=== PATIENT | female | born 1990 | race Caucasian/White ===

== ENCOUNTER 2017-06-03 15:30 | Emergency (ER) | payer OTHER ==
[~2017-06-03] VITALS: Ht 160 cm; Wt 71.3 kg
[2017-06-03 15:34] VITALS: Ht 160 cm; Wt 71.3 kg
--- NOTE | 2017-06-03 19:20 | ERD ---
ER Documentation Chief Complaint Chief Complaint left arm pain "needle might have broke" after using meth HPI 26-year-old female history of methamphetamine abuse presents with left arm pain , "needle might have broken" after using a week ago. She states that she was using crystal meth and she has been using a clean needle and felt like the tick might have broken off in her left upper extremity. She stated that there was some swelling that resolved she continues to feel a bump in her arm. Secondarily she also comes in with a dry cough for about 4 days to causes her to have shortness of breath. She has not had any fevers or chills, hemoptysis or leg swelling. No recent surgeries, no recent trauma she does not take any exogenous steroids. ROS All systems reviewed and are negative except as per history of present illness. Medications Home Meds Active Scripts Amoxicillin/Potassium Clav (Amox-Clav 875-125 mg Tablet) 875-125 mg Tab, 1 TAB PO BID for 7 Days, #14 TAB Prov:JANN SHORE PA-C 06/03/17 PMhx/Soc History of Surgery: Yes (L foot fx repair) Hx Miscellaneous Medical Probl: Yes (substance abuse) Hx Alcohol Use: Yes Hx Substance Use: Yes (Marijuana, heroine, meth) Hx Tobacco Use: Yes Smoking Status: Current every day smoker Physical Exam Vitals Vital Signs Date Time Temp Pulse Resp B/P Pulse Ox O2 Delivery O2 Flow Rate FiO2 06/03/17 15:34 98.4 99 18 131/76 99 Physical Exam General: Well-developed, well-nourished. The patient appears in no acute distress. HEENT: Head is normocephalic, atraumatic. No scleral icterus. Pupils are equal , round, and reactive. Oral mucous membranes are moist. No pharyngeal erythema. Neck: Supple. Nontender. Lungs: Clear to auscultation. Normal air movement. Heart: Regular rate and rhythm. S1 and S2 are normal. No murmurs, gallops, or rubs. Abdomen: Soft, nontender, nondistended. Bowel sounds are normoactive. Extremities: firm area in LUE, no fluctuance induration or lymphatic streaking. Pulses radially are 2+ bilaterally. Neurologic: Alert and oriented 3. No focal deficits. Skin: Normal turgor. No rash or lesions. Results 24 hrs DIAGNOSTIC IMAGING REPORT Patient: VICENTE WEIR : 1990 Age: 26 Sex: F MR #: [id number] DOS: 06/03/171832 Ordering MD: JANN SHORE PA-C Location: [facility] Room/Bed: PROCEDURE: Left humerus x-ray CLINICAL INDICATION: Possible needle foreign body. TECHNIQUE: Erect AP and lateral views of the left humerus were obtained, a total of 3 images sent to the PACS for review. A metallic BB marker is placed along the anterior distal arm soft tissues on 2 of the images submitted. COMPARISON: None FINDINGS: There is normal mineralization. No acute fracture or dislocation is seen. There is no significant soft tissue swelling. The visualized joints are normal. No radiopaque foreign body is evident. RPTAT:HJJR IMPRESSION: Unremarkable x-ray of the left humerus without evidence of retained radiopaque foreign body. Lalo Monaco Physician Date Time Electronically viewed and signed by Physician Saúl on 06/03/2017 19:57 JR/ CC: JANN SHORE PA-C DIAGNOSTIC IMAGING REPORT Patient: VICENTE WEIR : 1990 Age: 26 Sex: F MR #: [id number] DOS: 06/03/171832 Ordering MD: JANN SHORE PA-C Location: [facility] Room/Bed: PROCEDURE: XR Chest. CLINICAL INDICATION: Cough. TECHNIQUE: Portable AP erect view of the chest was obtained. COMPARISON: None. FINDINGS: The cardiomediastinal silhouette is within normal limits. The lungs are clear. There is no evidence for pleural effusion, pneumothorax or pulmonary vascular congestion. The osseous structures are intact with no evidence for acute abnormality. RPTAT:HJJR IMPRESSION: No evidence for acute intrathoracic pathology. Lalo Monaco Physician Date Time Electronically viewed and signed by Lalo Monaco Physician on 06/03/2017 19:56 JR/ CC: JANN SHORE PA-C Current Medications Medications (Trade) Dose Ordered Sig/Patrice Route PRN Reason Start Time Stop Time Status Last Admin Dose Admin Diphtheria/ Tetanus/Acell Pertussis (Adacel) 0.5 ml ONCE ONCE IM* 06/03/17 19:30 06/03/17 19:31 DC Procedures/MDM 26-year-old female comes with upper respiratory infection, with chief complaint of shortness of breath with this. I believe her symptoms are related to her cough, and is likely due to her acute bronchitis. No evidence of pneumonia on chest x-ray. She also had an x-ray done of her left upper extremity that was negative for foreign body. Additionally clinically she does not have any signs of infection, abscess, saving area due to local inflammation from needle use. Patient's tetanus was updated, she was advised to return for any worsening signs or symptoms or signs of infection. Departure Diagnosis: Primary Impression: Cough Additional Impression: Methamphetamine abuse Condition: Good JANN SHORE PA-C Jun 03, 2017 19:20
[2017-06-03] MEDS ORDERED: DIPHTH/TET/ACEL PERTUSS (ADULT) 0.5 ML VIAL IM* ONE (19:30)
--- NOTE | 2017-06-03 19:56 | RADRPT ---
PROCEDURE: XR Chest. CLINICAL INDICATION: Cough. TECHNIQUE: Portable AP erect view of the chest was obtained. COMPARISON: None. FINDINGS: The cardiomediastinal silhouette is within normal limits. The lungs are clear. There is no evidenc e for pleural effusion, pneumothorax or pulmonary vascular congestion. The osseous structures are i ntact with no evidence for acute abnormality. RPTAT:HJJR IMPRESSION: No evidence for acute intrathoracic pathology. Physician Saúl Date Time Electronically viewed and signed by Physician Saúl on 06/03/2017 19:56 JR/
--- NOTE | 2017-06-03 19:57 | RADRPT ---
PROCEDURE: Left humerus x-ray CLINICAL INDICATION: Possible needle foreign body. TECHNIQUE: Erect AP and lateral views of the left humerus were obtained, a total of 3 images sent to the PACS for review. A metallic BB marker is placed along the anterior distal arm soft tissues on 2 of the images submitted. COMPARISON: None FINDINGS: There is normal mineralization. No acute fracture or dislocation is seen. There is no significant soft tissue swelling. The visualized joints are normal. No radiopaque foreign body is evident. RPTAT:HJJR IMPRESSION: Unremarkable x-ray of the left humerus without evidence of retained radiopaque foreign body. Physician Saúl Date Time Electronically viewed and signed by Physician Saúl on 06/03/2017 19:57 JR/
[2017-06-03] MEDS ORDERED: AMOX1TAB10 PO (20:02)
[2017-06-03 20:21] VITALS: BP 116/73; PULSE 81; RESP 18; TEMP 98.4
== END 2017-06-03 20:23 | disposition short-term general hospital (02) ==
LOC: FTE 15:30
DX: F15.20 Other stimulant dependence, uncomplicated (principal); R05 Cough; F17.210 Nicotine dependence, cigarettes, uncomplicated
CPT/HCPCS: 71010; 73060; Z7502